=== PATIENT | female | born 1945 | race Caucasian/White ===

== ENCOUNTER 2016-06-06 00:30 | Emergency (ER) | payer OTHER ==
[2016-06-06 00:47] VITALS: BP 152/90; PULSE 89; TEMP 97.9; BMI 25.2
[2016-06-06] MEDS ORDERED: OXYCODONE/APAP 5/325MG COMBO TABLET PO ONE (01:30)
[2016-06-06] MEDS ORDERED: TETANUS AND DIPHTHERIA TOXOID 0.5 ML DISP.SYRIN IM ONE (01:34)
--- NOTE | 2016-06-06 01:37 | PDOC ---
History of Present Illness - General Chief Complaint: Injury Stated Complaint: FALL,HEAD INJURY Time Seen by Provider: 06/06/16 01:13 History Source: Patient, Family Exam Limitations: No Limitations - History of Present Illness Initial Comments: 06/06/16 01:31 Patient is a 71-year-old female with history of hypertension, diabetes here with complain of head injury which occurred about midnight. Patient states that she was entering her place of residence when she slipped on a mat and fell backward on concrete. There was no loss of consciousness, but states she has pain to the area of injury and nausea, no vomiting. States she went home however the bleeding from the area continued and so came to the emergency room for evaluation. Also complain of right knee pain states she didn't hit it however might have twisted it in an attempts to break her fall. She is not on ASA, or anticoagulants. PMD: Dr. Westbrook PMHX: as above PSHx: leg ulcer, skin graft, PFamhx: noncontributory ALL: codeine but has not problem with percocet GENERAL/CONSTITUTIONAL: [No fever or chills. No weakness. No weight change.] HEAD, EYES, EARS, NOSE AND THROAT: [No change in vision. No ear pain or discharge. No sore throat.] CARDIOVASCULAR: [No chest pain or shortness of breath.] RESPIRATORY: [No cough, wheezing, or hemoptysis.] GASTROINTESTINAL: [No nausea, vomiting, diarrhea or constipation. No rectal bleeding.] GENITOURINARY: [No dysuria, frequency, or change in urination.] MUSCULOSKELETAL: [No joint or muscle swelling or pain. No neck or back pain.] SKIN AND BREASTS: [No rash or easy bruising.] NEUROLOGIC: [No headache, vertigo, loss of consciousness, or loss of sensation.] PSYCHIATRIC: [No depression or anxiety.] ENDOCRINE: [No increased thirst. No abnormal weight change.] HEMATOLOGIC/LYMPHATIC: [No anemia, easy bleeding, or history of blood clots.] ALLERGIC/IMMUNOLOGIC: [No hives or skin allergy. No latex allergy.] GENERAL: [The patient is awake, alert, and fully oriented, in no acute distress. ] HEAD: [1.5 cm laceration to the left occiput, minimal swelling to the site.] EYES: [Pupils equal, round and reactive to light, extraocular movements intact, sclera anicteric, conjunctiva clear.] ENT: [Ears normal, nares patent, oropharynx clear without exudates. Moist mucous membranes.] NECK: [Normal range of motion, supple without lymphadenopathy, JVD, or masses.] LUNGS: [Breath sounds equal, clear to auscultation bilaterally. No wheezes, and no crackles.] HEART: [Regular rate and rhythm, normal S1 and S2 without murmur, rub.] ABDOMEN: [Soft, nontender, normoactive bowel sounds. No guarding, no rebound. No masses.] EXTREMITIES: Tenderness to the right anterior knee. Normal range of motion, no edema. No clubbing or cyanosis. No cords, erythema, or tenderness.] NEUROLOGICAL: [Cranial nerves II through XII grossly intact. Normal speech, normal gait.] PSYCH: [Normal mood, normal affect.] SKIN: [Warm, Dry, normal turgor, no rashes or lesions noted.] Past History - Past Medical History Allergies/Adverse Reactions: Allergies Allergy/AdvReac Type Severity Reaction Status Date / Time codeine Allergy Verified 06/06/16 00:45 Home Medications: Ambulatory Orders Hydrochlorothiazide [Hctz -] 12.5 mg PO DAILY 06/06/16 Metformin HCl [Glucophage -] 500 mg PO BID 06/06/16 Diabetes: Yes HTN: Yes - Psycho/Social/Smoking Cessation Hx Suicidal Ideation: No Smoking History: Never smoked Have you smoked in the past 12 months: No Information on smoking cessation initiated: No Hx Alcohol Use: No Drug/Substance Use Hx: No *Physical Exam - Vital Signs Last Vital Signs Temp Pulse Resp BP Pulse Ox 97.9 F 89 20 152/90 99 06/06/16 00:46 06/06/16 00:46 06/06/16 00:46 06/06/16 00:46 06/06/16 00:46 Procedures - Laceration/Wound Repair Posterior Head Wound Length: to 2.5 cm (1.5 cm) Wound's Depth, Shape: superficial Irrigated w/ Saline: Yes Betadine Prep: Yes Wound Repaired With: Kelvin (x3) Sterile Dressing Applied: No Splint Applied: No Medical Decision Making - Medical Decision Making 06/06/16 01:39 Patient is a 18-year-old female with history of hypertension, diabetes, ulcer, skin graft complaining of head injury since tonight. There was no loss of consciousness but patient now complains of some nausea and headache. Will get a head CT to rule out brain bleed. Scalp was stapled. 06/06/16 02:18 Patient Name: Maria Teresa Hart THIS IS A PRELIMINARYREPORT FROM [facility] EXAM: CT brain without contrast IMAGES: 393 EXAM DATE AND TIME: 2016-06-06 01:40:12.0 REASON FOR EXAM: Patient fell COMPARISON: No FINDINGS: Normal brain for age. No acute intracranial abnormality. No bleed. No visible infarct or mass. Osseous structures are intact. THIS DOCUMENT HAS BEEN ELECTRONICALLY SIGNED Han Johnston MD 06/06/2016 01:56 EST M.D. Please call [facility] [phone]) with questions. I discussed the physical exam findings, ancillary test results and final diagnoses with the patient. I answered all of the patient's questions. The patient was satisfied with the care received and felt comfortable with the discharge plan and treatment plan. The Patient agrees to follow up with the primary care physician within 24-72 hours. *DC/Admit/Observation/Transfer Diagnosis at time of Disposition: Closed head injury Qualifiers: Encounter type: initial encounter Qualified Code(s): S09.90XA - Unspecified injury of head, initial encounter Occipital scalp laceration Qualifiers: Encounter type: initial encounter Qualified Code(s): S01.01XA - Laceration without foreign body of scalp, initial encounter Knee sprain Qualifiers: Encounter type: initial encounter Involved ligament of knee: unspecified ligament Laterality: right Qualified Code(s): S83.91XA - Sprain of unspecified site of right knee, initial encounter - Discharge Dispostion Disposition: HOME Condition at time of disposition: Stable - Patient Instructions Printed Discharge Instructions: DI for Laceration Repair -- [place], DI for Closed Head Injury, DI for Knee Sprain Additional Instructions: Your Discharge Instructions: You must call primary care physician within 24 hours to arrange follow-up. Return to the Emergency Department with any new, persistent or worsening symptoms, for fever, chills, SOB, dizziness or any other concerning changes that may occur. Staple removal in 7 days. Also follow-up with orthopedics if you're right knee keeps hurting.
[2016-06-06] MEDS ORDERED: OXYCODONE/APAP 5/325MG COMBO TABLET ONE (01:49)
== END 2016-06-06 02:33 | disposition home or self-care (01) ==
LOC: JER 00:30
PROC: 0HQ0XZZ Repair Scalp Skin, External Approach (ICD-10-PCS; principal; 2016-06-06)
PROC: 3E0234Z Introduction of Serum, Toxoid and Vaccine into Muscle, Percutaneous Approach (ICD-10-PCS; 2016-06-06)
DX: S01.01XA Laceration without foreign body of scalp, initial encounter (principal); S83.8X1A Sprain of other specified parts of right knee, initial encounter; W01.0XXA Fall on same level from slipping, tripping and stumbling without subsequent striking against object, initial encounter; Y93.89 Activity, other specified; Y92.038 Other place in apartment as the place of occurrence of the external cause; Y99.8 Other external cause status; E11.9 Type 2 diabetes mellitus without complications; Z79.84 Long term (current) use of oral hypoglycemic drugs; I10 Essential (primary) hypertension
CPT/HCPCS: 12001-25; 70450-TC; 90471; 90715; 99282-25

== ENCOUNTER 2016-06-13 13:16 | Emergency (ER) | payer OTHER ==
[2016-06-13 13:44] VITALS: BP 138/75; PULSE 83; TEMP 98.6; BMI 25.9
--- NOTE | 2016-06-13 15:17 | PDOC ---
History of Present Illness - General Chief Complaint: Suture/Staple Removal(Here) Stated Complaint: FOLLOW UP, REMOVING STITCHES Time Seen by Provider: 06/13/16 13:59 History Source: Patient Exam Limitations: Language Barrier - History of Present Illness Initial Comments: 06/13/16 15:11 CC right knee pain post fall of 1 week ago; also here for staple removal post fall mentioned Severity: mild Associated Symptoms: reports: denies symptoms. denies: cough, fever/chills Past History - Past Medical History Allergies/Adverse Reactions: Allergies Allergy/AdvReac Type Severity Reaction Status Date / Time codeine Allergy Verified 06/13/16 13:41 Home Medications: Ambulatory Orders Hydrochlorothiazide [Hctz -] 12.5 mg PO DAILY 06/06/16 Metformin HCl [Glucophage -] 500 mg PO BID 06/06/16 Diabetes: Yes HTN: Yes - Immunization History Immunization Up to Date: Yes - Psycho/Social/Smoking Cessation Hx Suicidal Ideation: No Smoking History: Never smoked Have you smoked in the past 12 months: No Hx Alcohol Use: No Drug/Substance Use Hx: No Review of Systems - Review of Systems Constitutional: No: Chills, Fever, Malaise HEENTM: Yes: Other (scalp eli) Musculoskeletal: Yes: Joint Pain, Joint Stiffness Integumentary: Yes: Other (old discoloration RLE from multiple skin grafts, post infection). No: Symptoms Reported Neurological: No: Symptoms reported *Physical Exam - Vital Signs Last Vital Signs Temp Pulse Resp BP Pulse Ox 98.6 F 83 20 138/75 99 06/13/16 13:41 06/13/16 13:41 06/13/16 13:41 06/13/16 13:41 06/13/16 13:41 - Physical Exam General Appearance: Yes: Appropriately Dressed. No: Apparent Distress HEENT: positive: Other (scalp wound healing well post staple removal). negative : TMs Normal, Pharynx Normal Neck: positive: Supple. negative: Tender, Rigid, Lymphadenopathy (R), Lymphadenopathy (L) Respiratory/Chest: positive: Lungs Clear. negative: Chest Tender Extremity: positive: Other (mild tenderness to anterior lateral knee; no joint laxity; mild sts) Integumentary: positive: Other ED Treatment Course - RADIOLOGY Radiology Studies Ordered: Category Date Time Status KNEE 2 POS-RIGHT [RAD] Stat Radiology 06/13/16 14:26 Completed Medical Decision Making - Medical Decision Making 06/13/16 15:15 xray= negative; will refer to ortho in [place], well established pt *DC/Admit/Observation/Transfer Diagnosis at time of Disposition: Encounter for removal of eli Knee sprain Qualifiers: Encounter type: subsequent encounter Involved ligament of knee: unspecified ligament Laterality: right Qualified Code(s): S83.91XD - Sprain of unspecified site of right knee, subsequent encounter - Discharge Dispostion Disposition: HOME Condition at time of disposition: Stable Admit: No - Patient Instructions Additional Instructions: see local orthopedist for follow up 1 week - Post Discharge Activity Work/School Note: Back to Work
== END 2016-06-13 15:34 | disposition home or self-care (01) ==
LOC: JERFT 13:16
DX: Z48.02 Encounter for removal of sutures (principal)
CPT/HCPCS: 73560-TC-RT; 99281-25

== ENCOUNTER → 2016-09-21 | Emergency (ER) | payer OTHER ==
[~2016-09-21] MED LIST: ACETAMINOPHEN 1000 MG/100 ML VIAL (NON FORMULARY) IVPB ONE; ACETAMINOPHEN INJECTION 100 ML IVPB ONE; KETOROLAC TROMETHAMINE 30 MG/1 ML VIAL IVPUSH ONE; KETOROLAC TROMETHAMINE 30 MG/1 ML VIAL ONE; SODIUM CHLORIDE 2,000 ML IV STA
[2016-09-21 23:26] VITALS: BP 157/76; PULSE 87; TEMP 98.3; BMI 25.2
--- NOTE | 2016-09-21 23:32 | PDOC ---
History of Present Illness - General Chief Complaint: Injury Stated Complaint: FALL/INJURY History Source: Patient Exam Limitations: No Limitations - History of Present Illness Initial Comments: 09/21/16 23:44 patient tripped and fell about two weeks ago, chest pain ever since, only worsening. Nothing seems to make it better. Has not seen anyone yet for this injury. Timing/Duration: other (2 weeks) Severity: moderate Modifying Factors: improves with: cold therapy Associated Symptoms: reports: chest pain, cough, loss of appetite, malaise, shortness of breath Past History - Travel Traveled outside of the country in the last 30 days: No Close contact w/someone who was outside of country & ill: No - Past Medical History Allergies/Adverse Reactions: Allergies Allergy/AdvReac Type Severity Reaction Status Date / Time codeine Allergy Verified 09/21/16 23:26 Home Medications: Ambulatory Orders Hydrochlorothiazide [Hctz -] 12.5 mg PO DAILY 06/06/16 Metformin HCl [Glucophage -] 500 mg PO BID 06/06/16 Ibuprofen [Motrin -] 600 mg PO QID #60 tablet 06/13/16 Diabetes: Yes HTN: Yes Hypercholesterolemia: Yes Other medical history: RA - Immunization History Immunization Up to Date: Yes - Psycho/Social/Smoking Cessation Hx Anxiety: No Suicidal Ideation: No Smoking History: Never smoked Have you smoked in the past 12 months: No Information on smoking cessation initiated: No Hx Alcohol Use: No Drug/Substance Use Hx: No Substance Use Type: None Review of Systems - Review of Systems Able to Perform ROS?: Yes Is the patient limited Malay proficient: No Constitutional: Yes: See HPI HEENTM: No: Symptoms Reported Respiratory: Yes: Symptoms reported, Cough, Shortness of Breath Cardiac (ROS): Yes: Symptoms Reported, Chest Pain ABD/GI: No: Symptoms Reported : No: Symptoms Reported Musculoskeletal: Yes: See HPI Integumentary: No: Symptoms Reported Neurological: No: Symptoms reported Psychiatric: No: Anxiety, Depression Endocrine: No: Symptoms Reported Hematologic/Lymphatic: No: Symptoms Reported All Other Systems: Reviewed and Negative *Physical Exam - Vital Signs Last Vital Signs Temp Pulse Resp BP Pulse Ox 98.3 F 87 18 157/76 99 09/21/16 23:22 09/21/16 23:22 09/21/16 23:22 09/21/16 23:22 09/21/16 23:22 - Physical Exam General Appearance: Yes: Nourished, Appropriately Dressed HEENT: positive: EOMI, PATTI, Normal ENT Inspection, Normal Voice Neck: positive: Tender, Trachea midline, Supple. negative: Rigid Respiratory/Chest: positive: Chest Tender, Lungs Clear, Normal Breath Sounds. negative: Respiratory Distress Cardiovascular: positive: Regular Rhythm, Regular Rate. negative: Murmur Gastrointestinal/Abdominal: positive: Normal Bowel Sounds, Flat, Soft. negative : Tender, Organomegaly Rectal Exam: positive: deferred Lymphatic: negative: Adenopathy, Tenderness Musculoskeletal: positive: Normal Inspection. 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 Leodan Yu, attest that this document has been prepared under my direction and personally reviewed by me in its entirety. I further attest, that it accurately reflects all work, treatment, procedures and medical decision -making performed by me.
[2016-09-22 00:32] LABS: EOSINOPHIL 2.3 % (0-4.5); MCH 27.3 pg (25.7-33.7); MCHC 32.2 g/dl (32.0-36.0); MEAN CELL VOLUME 84.9 fl (80-96); NEUTROPHILS 65.9 % (42.8-82.8); PLATELET COUNT 184 K/MM3 (134-434); RDW 14.3 % (11.6-15.6); WHITE BLOOD COUNT 6.9 K/mm3 (4.0-10.0)
[2016-09-22 00:44] LABS: INR 0.96 (0.82-1.09); PROTHROMBIN TIME (PATIENT) 10.6 SEC (9.98-11.88)
[2016-09-22 00:54] LABS: ALBUMIN 3.7 g/dl (3.4-5.0); ANION GAP 12 (8-16); BILIRUBIN,TOTAL 0.3 mg/dL (0.2-1.0); CO2 26 mmol/L (21-32); COCKROFT - GAULT 44.965; CREATININE 1.3 mg/dL (0.55-1.02); GLUCOSE,RANDOM 122 mg/dL (74-106); SGOT/AST 34 U/L (15-37); SGPT/ALT 57 U/L (12-78); TOT PROT 7.1 g/dl (6.4-8.2)
[2016-09-22 00:57] LABS: ALK PHOS 136 U/L (45-117); TROPONIN I < 0.02 ng/ml (0.00-0.05)
--- NOTE | 2016-09-22 03:37 | PDOC ---
*Physical Exam - Vital Signs Last Vital Signs Temp Pulse Resp BP Pulse Ox 98.3 F 87 18 157/76 99 09/21/16 23:22 09/21/16 23:22 09/21/16 23:22 09/21/16 23:22 09/21/16 23:22 ED Treatment Course - LABORATORY CBC & Chemistry Diagram: 09/22/16 00:28 09/22/16 00:28 - ADDITIONAL ORDERS Additional order review: Laboratory Results 09/22/16 09/22/16 00:28 00:28 INR 0.96 Sodium 143 Potassium 3.7 Chloride 105 Carbon Dioxide 26 Anion Gap 12 BUN 24 H Creatinine 1.3 H Creat Clearance w eGFR 40.49 Random Glucose 122 H Calcium 9.0 Total Bilirubin 0.3 AST 34 ALT 57 Alkaline Phosphatase 136 H Creatine Kinase 76 Troponin I < 0.02 Total Protein 7.1 Albumin 3.7 09/22/16 00:28 RBC 4.23 MCV 84.9 MCHC 32.2 RDW 14.3 MPV 11.0 Neutrophils % 65.9 Lymphocytes % 22.8 Monocytes % 8.0 Eosinophils % 2.3 Basophils % 1.0 - Medications Given in the ED: ED Medications Discontinued Medications Generic Name Dose Route Start Last Admin Trade Name Freq PRN Reason Stop Dose Admin Acetaminophen 1,000 mg 09/21/16 23:40 09/22/16 00:47 Ofirmev Injection - IVPB 09/21/16 23:41 1,000 mg ONCE ONE Administration Sodium Chloride 2,000 mls @ 1,000 mls/hr 09/21/16 23:43 09/22/16 00:48 Normal Saline - IV 09/22/16 01:42 1,000 mls/hr ASDIR STA Administration Ketorolac Tromethamine 30 mg 09/21/16 23:40 09/22/16 00:47 Toradol Injection - IVPUSH 09/21/16 23:41 30 mg ONCE ONE Administration Medical Decision Making - Medical Decision Making 09/22/16 03:36 all studies are normal. Pt to be discharged. *DC/Admit/Observation/Transfer Diagnosis at time of Disposition: Fall Qualifiers: Encounter type: initial encounter Qualified Code(s): W19.XXXA - Unspecified fall, initial encounter - Discharge Dispostion Disposition: HOME Condition at time of disposition: Stable Admit: No - Referrals Referrals: Hitesh Kellogg [Primary Care Provider] - - Patient Instructions Printed Discharge Instructions: How to Prevent Falls - Post Discharge Activity
--- NOTE | 2016-09-22 13:29 | EKG ---
Test Reason : Blood Pressure : / mmHG Vent. Rate : 073 BPM Atrial Rate : 073 BPM P-R Int : 166 ms QRS Dur : 084 ms QT Int : 390 ms P-R-T Axes : 073 -11 046 degrees QTc Int : 429 ms POOR DATA QUALITY, INTERPRETATION MAY BE ADVERSELY AFFECTED NORMAL SINUS RHYTHM NORMAL ECG NO PREVIOUS ECGS AVAILABLE Confirmed by SOL POTTER MD ([id number]) on 09/22/2016 1:29:08 PM Referred By: Confirmed By:SOL POTTER MD
== END | disposition home or self-care (01) ==
LOC: SUPCPDRO 23:18 → JER 23:18
DX: S29.9XXA Unspecified injury of thorax, initial encounter (principal); W18.39XA Other fall on same level, initial encounter; Y93.01 Activity, walking, marching and hiking; Y92.038 Other place in apartment as the place of occurrence of the external cause; I10 Essential (primary) hypertension; E11.9 Type 2 diabetes mellitus without complications; Z79.84 Long term (current) use of oral hypoglycemic drugs; M06.9 Rheumatoid arthritis, unspecified
CPT/HCPCS: 36415; 71020-TC; 71111-TC; 71260-TC; 74177-TC; 80053; 82550; 84484; 85025; 85610; 93005; 93010; 99282-25